=== PATIENT | male | born 1975 | race Caucasian/White ===

== ENCOUNTER 2017-04-24 15:15 | Observation (INO) | payer OTHER ==
[2017-04-24] MEDS ORDERED: Nitroglycerin 0.4 MG Tab.SL SL PRN (15:21)
[2017-04-24] MEDS ORDERED: Aspirin 81 MG Tab.Chew PO ONE (15:21)
[2017-04-24] MEDS ORDERED: Sodium Chloride 0.9% 10 ML Syringe FLUSH PRN (15:21)
[2017-04-24] MEDS ORDERED: Sodium Chloride 0.9% 2.5 ML Syringe FLUSH PRN (15:21)
--- NOTE | 2017-04-24 15:35 | EDM.PDOC ---
[id number]: 04/24/17 15:25 Source of Information: Reports: Patient History Limitations: Reports: No Limitations - History of Present Illness INITIAL COMMENTS - FREE TEXT/NARRATIVE: History of present illness: []Patient got up to go to work 1 hour ago and developed left-sided chest pain that sharp and nonradiating with shortness of breath. Not had this chest pain before he denies any nausea, vomiting, fevers, cough or recent illnesses. He had no sweating, syncope, dizziness or lightheadedness. Pain at its worse was 8/ 10. On arrival patient still has pain after one dose of nitroglycerin his pressure dropped but his pain was alleviated to 5 out of 10. He developed a severe headache was Review of systems: As per history of present illness and below otherwise all systems reviewed and negative. Past medical history: As per history of present illness and as reviewed below otherwise noncontributory. Surgical history: As per history of present illness and as reviewed below otherwise noncontributory. Social history: No reported history of drug or alcohol abuse. Family history: As per history of present illness and as reviewed below otherwise noncontributory. Physical exam: General: Well developed, well nourished in NAD HEENT: Atraumatic, normocephalic, pupils reactive, negative for conjunctival pallor or scleral icterus, mucous membranes moist, throat clear, neck supple, nontender, trachea midline. Lungs: Clear to auscultation, breath sounds equal bilaterally, chest nontender. Heart: S1S2, regular, negative for clicks, rubs, or JVD. Abdomen: Soft, nondistended, nontender. Negative for masses or hepatosplenomegaly. Negative for costovertebral tenderness. Pelvis: Stable nontender. Genitourinary: Deferred. Rectal: Deferred. Extremities: Atraumatic, negative for cords or calf pain. Neurovascular unremarkable. Neuro: Awake, alert, oriented. Cranial nerves II through XII unremarkable. Cerebellum unremarkable. Motor and sensory unremarkable throughout. Exam nonfocal. Diagnostics: []Cardiac workup which is initially negative including a d-dimer ruling out PE EKG shows no acute ischemia Therapeutics: []Patient was given nitroglycerin which dropped his pressure significantly. IV fluids was given and morphine for pain improved. Given aspirin Impression: []ACS Plan: []Admit for observation rule out RI further treatment Definitive disposition and diagnosis as appropriate pending reevaluation and review of above. Left Chest Pain Score (Numeric/FACES): 7 - Related Data Allergies Allergy/AdvReac Type Severity Reaction Status Date / Time No Known Allergies Allergy Verified 04/24/17 15:20 Home Meds: Home Meds metFORMIN [Glucophage XR] 500 mg PO QIDACANDBED 04/24/17 [History] Past Medical History Endocrine/Metabolic History: Reports: Diabetes, Type II - Infectious Disease History Infectious Disease History: Reports: Chicken Pox Social & Family History - Family History Cardiac: Reports: Heart Failure - Tobacco Use Smoking Status *Q: Current Every Day Smoker Years of Tobacco use: 22 Packs/Tins Daily: 0.5 - Caffeine Use Caffeine Use: Reports: Energy Drinks - Recreational Drug Use Recreational Drug Use: No ED ROS GENERAL - Review of Systems Review Of Systems: See Below (See history of present illness) ED EXAM, GENERAL - Physical Exam Exam: See Below (See history of present illness) Course - Vital Signs Last Recorded V/S: Last Vital Signs Temp 36.5 C 04/24/17 17:47 Pulse 82 04/24/17 17:47 Resp 20 04/24/17 17:47 BP 117/80 04/24/17 17:47 Pulse Ox 97 04/24/17 17:47 - Orders/Labs/Meds Orders: Active Orders 24 hr Category Date Time Status Cardiac Monitoring [RC] . DIRECTED Care 04/24/17 15:20 Active Sodium Chloride 0.9% [Saline Flush] Med 04/24/17 15:21 Active 10 ml FLUSH ASDIRECTED PRN Sodium Chloride 0.9% [Saline Flush] Med 04/24/17 15:21 Active 2.5 ml FLUSH ASDIRECTED PRN Saline Lock Insert [OM.PC] Stat Oth 04/24/17 15:20 Ordered Medication Orders Sodium Chloride (Saline Flush) 10 ml FLUSH ASDIRECTED PRN PRN Reason: Keep Vein Open Last Admin: 04/24/17 15:41 Dose: 10 ml Sodium Chloride (Saline Flush) 2.5 ml FLUSH ASDIRECTED PRN PRN Reason: Keep Vein Open Last Admin: 04/24/17 15:41 Dose: 2.5 ml Labs: Laboratory Tests 04/24/17 04/24/17 04/24/17 Range/Units 15:30 15:30 15:30 WBC 8.48 (4.0-11.0) K/uL RBC 6.18 H (4.50-5.90) M/uL Hgb 17.6 H (13.0-17.0) g/dL Hct 51.2 H (38.0-50.0) % MCV 82.8 (80.0-98.0) fL MCH 28.5 (27.0-32.0) pg MCHC 34.4 (31.0-37.0) g/dL RDW Std Deviation 42.3 (28.0-62.0) fl RDW Coeff of Aura 14 (11.0-15.0) % Plt Count 239 (150-400) K/uL MPV 11.80 (7.40-12.00) fL Neut % (Auto) 49.5 (48.0-80.0) % Lymph % (Auto) 39.4 (16.0-40.0) % Villalba % (Auto) 8.0 (0.0-15.0) % Eos % (Auto) 2.9 (0.0-7.0) % Baso % (Auto) 0.2 (0.0-1.5) % Neut # (Auto) 4.2 (1.4-5.7) K/uL Lymph # (Auto) 3.3 H (0.6-2.4) K/uL [place] # (Auto) 0.7 (0.0-0.8) K/uL Eos # (Auto) 0.3 (0.0-0.7) K/uL Baso # (Auto) 0.0 (0.0-0.1) K/uL D-Dimer, Quantitative (0.0-0.52) mg/LFEU Sodium 138 (136-146) mmol/L Potassium 4.2 (3.5-5.1) mmol/L Chloride 103 (98-110) mmol/L Carbon Dioxide 26 (21-31) mmol/L BUN 8 (6.0-23.0) mg/dL Creatinine 0.8 (0.6-1.5) mg/dL Est Cr Clr Drug Dosing 132.03 mL/min Estimated GFR (MDRD) > 60.0 ml/min Glucose 273 H (60-110) mg/dL Calcium 9.6 (8.8-10.8) mg/dL Total Bilirubin 0.6 (0.1-1.5) mg/dL AST 38 (5-40) IU/L ALT 72 H (8-54) IU/L Alkaline Phosphatase 111 (40-150) Troponin I < 0.10 (0.0-0.29) NG/ML Total Protein 7.6 (6.0-8.0) g/dL Albumin 3.9 (3.5-5.0) g/dL Globulin 3.7 H (2.0-3.5) g/dL Albumin/Globulin Ratio 1.1 L (1.3-2.8) 04/24/17 Range/Units 15:30 WBC (4.0-11.0) K/uL RBC (4.50-5.90) M/uL Hgb (13.0-17.0) g/dL Hct (38.0-50.0) % MCV (80.0-98.0) fL MCH (27.0-32.0) pg MCHC (31.0-37.0) g/dL RDW Std Deviation (28.0-62.0) fl RDW Coeff of Aura (11.0-15.0) % Plt Count (150-400) K/uL MPV (7.40-12.00) fL Neut % (Auto) (48.0-80.0) % Lymph % (Auto) (16.0-40.0) % Villalba % (Auto) (0.0-15.0) % Eos % (Auto) (0.0-7.0) % Baso % (Auto) (0.0-1.5) % Neut # (Auto) (1.4-5.7) K/uL Lymph # (Auto) (0.6-2.4) K/uL [place]ba # (Auto) (0.0-0.8) K/uL Eos # (Auto) (0.0-0.7) K/uL Baso # (Auto) (0.0-0.1) K/uL D-Dimer, Quantitative 0.51 (0.0-0.52) mg/LFEU Sodium (136-146) mmol/L Potassium (3.5-5.1) mmol/L Chloride (98-110) mmol/L Carbon Dioxide (21-31) mmol/L BUN (6.0-23.0) mg/dL Creatinine (0.6-1.5) mg/dL Est Cr Clr Drug Dosing mL/min Estimated GFR (MDRD) ml/min Glucose (60-110) mg/dL Calcium (8.8-10.8) mg/dL Total Bilirubin (0.1-1.5) mg/dL AST (5-40) IU/L ALT (8-54) IU/L Alkaline Phosphatase (40-150) Troponin I (0.0-0.29) NG/ML Total Protein (6.0-8.0) g/dL Albumin (3.5-5.0) g/dL Globulin (2.0-3.5) g/dL Albumin/Globulin Ratio (1.3-2.8) Meds: Medications Generic Name Dose Route Start Last Admin Trade Name Freq PRN Reason Stop Dose Admin Sodium Chloride 10 ml 04/24/17 15:21 04/24/17 15:41 Saline Flush FLUSH 10 ml ASDIRECTED PRN Administration Keep Vein Open Sodium Chloride 2.5 ml 04/24/17 15:21 04/24/17 15:41 Saline Flush FLUSH 2.5 ml ASDIRECTED PRN Administration Keep Vein Open Discontinued Medications Generic Name Dose Route Start Last Admin Trade Name Freq PRN Reason Stop Dose Admin Aspirin 324 mg 04/24/17 15:21 04/24/17 15:38 Aspirin PO 04/24/17 15:22 324 mg ONETIME ONE Administration Sodium Chloride 1,000 mls @ 999 mls/hr 04/24/17 15:59 04/24/17 16:05 Normal Saline IV 04/24/17 16:59 999 mls/hr .Bolus ONE Administration Morphine Sulfate 2 mg 04/24/17 15:55 04/24/17 16:04 Morphine IVPUSH 04/24/17 15:56 2 mg ONETIME ONE Administration Morphine Sulfate 2 mg 04/24/17 16:48 04/24/17 17:23 Morphine IVPUSH 04/24/17 16:49 2 mg ONETIME ONE Administration Nitroglycerin 0.4 mg 04/24/17 15:21 04/24/17 15:40 Nitrostat SL 04/24/17 15:32 0.4 mg Q5M PRN Administration Chest Pain Ondansetron HCl 4 mg 04/24/17 15:56 04/24/17 16:04 Zofran IVPUSH 04/24/17 15:57 4 mg ONETIME ONE Administration Departure - Departure Time of Disposition: 17:58 Disposition: Refer to Observation Condition: Good Clinical Impression: Chest pain - My Orders Last 24 Hours: My Active Orders 04/24/17 15:20 Cardiac Monitoring [RC] . DIRECTED Saline Lock Insert [OM.PC] Stat 04/24/17 15:21 Sodium Chloride 0.9% [Saline Flush] 10 ml FLUSH ASDIRECTED PRN Sodium Chloride 0.9% [Saline Flush] 2.5 ml FLUSH ASDIRECTED PRN - Assessment/Plan Last 24 Hours: My Active Orders 04/24/17 15:20 Cardiac Monitoring [RC] . DIRECTED Saline Lock Insert [OM.PC] Stat 04/24/17 15:21 Sodium Chloride 0.9% [Saline Flush] 10 ml FLUSH ASDIRECTED PRN Sodium Chloride 0.9% [Saline Flush] 2.5 ml FLUSH ASDIRECTED PRN
[2017-04-24] MEDS ORDERED: Morphine 2 MG/ML Syringe IVPUSH ONE ×2 (15:55→16:48)
[2017-04-24] MEDS ORDERED: Ondansetron 4 MG/2 ML SDV IVPUSH ONE (15:56)
[2017-04-24] MEDS ORDERED: Sodium Chloride 0.9% 1,000 ML IV ONE (15:59)
[2017-04-24 16:30] LABS: CHLORIDE,CL 103 mmol/L (98-110); SODIUM,NA 138 mmol/L (136-146)
--- NOTE | 2017-04-24 16:32 | CR ---
Single view chest Cardiac monitoring leads are in place. There is no evidence of segmental or lobar consolidation. Adrian g body habitus the lung larson are clear. Impression: No acute cardia pulmonary disease identified allowing for patient's body habitus
[2017-04-24] MEDS ORDERED: oxyCODONE 5 MG Tab PO PRN (18:06)
[2017-04-24] MEDS ORDERED: Ondansetron 4 MG Tab.DIS PO PRN (18:06)
[2017-04-24] MEDS ORDERED: Docusate Sodium 100 MG Cap PO PRN (18:06)
[2017-04-24] MEDS ORDERED: Morphine 2 MG/ML Syringe IVPUSH PRN (18:06)
[2017-04-24] MEDS ORDERED: Acetaminophen 325 MG Tab PO PRN (18:06)
[2017-04-24] MEDS ORDERED: Temazepam 15 MG Cap PO PRN (18:06)
--- NOTE | 2017-04-24 18:18 | PCM.HP ---
H&P History of Present Illness - General Date of Service: 04/24/17 Admit Problem/Dx: Admission Diagnosis/Problem Admission Diagnosis/Problem Chest pain, anginal equivalent, complicated uncontrolled diabetes Source of Information: Patient History Limitations: Reports: No Limitations - History of Present Illness Initial Comments - Free Text/Narative: The patient is a 41-year-old gentleman who is presented to the emergency department primarily out of concern for acute onset left sided sharp, stabbing chest pain which started suddenly while he was at work. The patient did not have any radiation of the pain. He reports that he had some shortness of breath associated. The patient had denied any diaphoresis. No dizziness or lightheadedness. The patient says that he has never had anything like this happen to him in the past. The patient also has a family history of coronary artery disease. The patient in the emergency department had relief with the use of nitroglycerin and morphine. The patient normally works in [place] 2 weeks out of the month and then returns home to [place]. The patient has a primary care physician in [place]. He also admits to previously poorly controlled diabetes mellitus and has a hemoglobin A1c greater than 11%. Onset of Symptoms: Reports: Sudden Duration of Symptoms: Reports: Hour(s):, Improving Location: Reports: Chest Quality: Reports: Sharp, Stabbing Severity: Severe Improves with: Reports: Medication Worsens with: Reports: None Associated Symptoms: Reports: Shortness of Breath Left Chest Pain Score (Numeric/FACES): 7 - Related Data Allergies/Adverse Reactions: Allergies Allergy/AdvReac Type Severity Reaction Status Date / Time No Known Allergies Allergy Verified 04/24/17 15:20 Home Medications: Home Meds metFORMIN [Glucophage XR] 500 mg PO QIDACANDBED 04/24/17 [History] Past Medical History HEENT History: Reports: None Cardiovascular History: Reports: None Respiratory History: Reports: None Gastrointestinal History: Reports: None Genitourinary History: Reports: None Musculoskeletal History: Reports: None Neurological History: Reports: None Psychiatric History: Reports: None Endocrine/Metabolic History: Reports: Diabetes, Type II (Poorly controlled) Hematologic History: Reports: None Oncologic (Cancer) History: Reports: None - Infectious Disease History Infectious Disease History: Reports: Chicken Pox Social & Family History - Family History HEENT: Reports: Other (See Below) Other HEENT Family History: diabetic retinopathy Cardiac: Reports: Heart Failure Respiratory: Reports: Other (See Below) Other Respiratory Family Hisory: Lung CA Endocrine/Metabolic: Reports: Diabetes, type II Oncologic: Reports: Leukemia, Liver, Lung - Tobacco Use Smoking Status *Q: Current Every Day Smoker Years of Tobacco use: 22 Packs/Tins Daily: 0.5 - Caffeine Use Caffeine Use: Reports: Energy Drinks - Recreational Drug Use Recreational Drug Use: No H&P Review of Systems - Review of Systems: Review Of Systems: See Below General: Reports: Weakness HEENT: Reports: No Symptoms Pulmonary: Reports: Shortness of Breath Cardiovascular: Reports: Chest Pain Gastrointestinal: Reports: No Symptoms Genitourinary: Reports: No Symptoms Musculoskeletal: Reports: No Symptoms Skin: Reports: No Symptoms Psychiatric: Reports: No Symptoms Neurological: Reports: No Symptoms Hematologic/Lymphatic: Reports: No Symptoms Immunologic: Reports: No Symptoms Exam - Exam Exam: See Below - Vital Signs Vital Signs: Last Vital Signs Temp 36.5 C 04/24/17 17:47 Pulse 82 04/24/17 17:47 Resp 20 04/24/17 17:47 BP 117/80 04/24/17 17:47 Pulse Ox 97 04/24/17 17:47 Weight: 154.221 kg - Exam Quality Assessment: Supplemental Oxygen General: Alert, Oriented, Cooperative, Mild Distress HEENT: Conjunctiva Clear, EACs Clear, Mucosa Moist & [place], Nares Patent, Other ( Very poor oral hygiene) Neck: Supple, Trachea Midline, Full Range of Motion. No: Thyromegaly Lungs: Clear to Auscultation, Normal Respiratory Effort Cardiovascular: Regular Rate, Regular Rhythm, Normal S1, Normal S2 GI/Abdominal Exam: Normal Bowel Sounds, Soft, Non-Tender, Other (Obese) Back Exam: Decreased Range of Motion Extremities: Normal Inspection, No Pedal Edema Skin: Warm, Dry, Intact Neurological: Cranial Nerves Intact Neuro Extensive - Mental Status: Alert, Oriented x3 Psychiatric: Alert, Normal Affect, Normal Mood - Patient Data Result Diagrams: 04/24/17 15:30 04/24/17 15:30 *Q Meaningful Use (ADM) - VTE *Q VTE Criteria *Q: - VTE Risk Assess *Q Each Risk Factor Represents 1 Point: Age 41 - 59 years, Obesity (BMI greater than 30) Total Score 1 Point Risk Factors: 2 - Stroke *Q Stroke Criteria *Q: - AMI *Q AMI Criteria *Q: - Problem List (1) Chest pain, atypical SNOMED Code(s): 905244431 ICD Code: R07.89 - OTHER CHEST PAIN Status: Acute Priority: High Current Visit: Yes (2) Morbid obesity SNOMED Code(s): 248541620, 16195716985839 ICD Code: E66.01 - MORBID (SEVERE) OBESITY DUE TO EXCESS CALORIES Status: Chronic Priority: High Current Visit: Yes (3) Diabetes mellitus type 2 in obese SNOMED Code(s): 03208934 ICD Code: E11.69 - TYPE 2 DIABETES MELLITUS WITH OTHER SPECIFIED COMPLICATION ; E66.9 - OBESITY, UNSPECIFIED Status: Chronic Current Visit: Yes Problem Details: Poorly controlled (4) Tobacco abuse SNOMED Code(s): 693677202, 127710562 ICD Code: Z72.0 - TOBACCO USE Status: Chronic Priority: High Current Visit: Yes Problem List Initiated/Reviewed/Updated: Yes Orders Last 24hrs: Active Orders 24 hr Category Date Time Status Patient Status [ADT] Routine ADT 04/24/17 18:06 Ordered Blood Glucose Check, Bedside [RC] WITHMEALSANDBED Care 04/24/17 18:06 Ordered Blood Glucose Check, Bedside [RC] WITHMEALSANDBED Care 04/24/17 18:06 Ordered Diabetes Education [RC] Click To Edit Care 04/24/17 18:08 Ordered EKG Documentation Completion [RC] AM Care 04/25/17 07:00 Ordered Oxygen Therapy [RC] PRN Care 04/24/17 18:06 Ordered VTE/DVT Education [RC] PER UNIT ROUTINE Care 04/24/17 18:06 Ordered Vital Signs [RC] Q4H Care 04/24/17 18:06 Ordered [place] [employer] Diet [DIET] Diet 04/25/17 Breakfast Ordered BASIC METABOLIC PANEL,BMP [CHEM] AM Lab 04/25/17 05:11 Ordered CBC WITH AUTO DIFF [HEME] AM Lab 04/25/17 05:11 Ordered GLYCOSYLATED HEMOGLOBIN,HGBA1C [CHEM] Routine Lab 04/24/17 18:12 Ordered TROPONIN I [CHEM] Timed Lab 04/24/17 18:06 Ordered Acetaminophen [Tylenol] Med 04/24/17 18:06 Ordered 650 mg PO Q4H PRN Docusate Sodium [Colace] Med 04/24/17 18:06 Ordered 100 mg PO BID PRN Enoxaparin [Lovenox] Med 04/24/17 18:15 Ordered 40 mg SUBCUT DAILY Insulin Aspart [NovoLOG] Med 04/24/17 21:00 Ordered See Protocol SUBCUT ACBREAKFASTANDBED Morphine Med 04/24/17 18:06 Ordered 2 mg IVPUSH Q2H PRN Ondansetron [Zofran ODT] Med 04/24/17 18:06 Ordered 4 mg PO Q4H PRN Sodium Chloride 0.9% [Normal Saline] 1,000 ml Med 04/24/17 18:15 Ordered IV ASDIRECTED Temazepam [Restoril] Med 04/24/17 18:06 Ordered 15 mg PO BEDTIME PRN metFORMIN [Glucophage XR] Med 04/24/17 21:00 Ordered 500 mg PO QIDACANDBED oxyCODONE Med 04/24/17 18:06 Ordered 5 mg PO Q4H PRN Glucose Management Sub Q Reflex [OM.PC] Click To Edit Oth 04/24/17 18:06 Ordered Resuscitation Status Routine Resus Stat 04/24/17 18:06 Ordered Medication Orders Acetaminophen (Tylenol) 650 mg PO Q4H PRN PRN Reason: Pain (Mild 1-3)/fever Docusate Sodium (Colace) 100 mg PO BID PRN PRN Reason: Constipation Enoxaparin Sodium (Lovenox) 40 mg SUBCUT DAILY PATI Sodium Chloride (Normal Saline) 1,000 mls @ 70 mls/hr IV ASDIRECTED PATI Insulin Aspart (Novolog) 0 unit SUBCUT ACBREAKFASTANDBED PATI PRN Reason: Protocol Metformin HCl (Glucophage Xr) 500 mg PO QIDACANDBED PATI Morphine Sulfate (Morphine) 2 mg IVPUSH Q2H PRN PRN Reason: Pain (severe 7-10) Stop: 04/25/17 18:08 Ondansetron HCl (Zofran Odt) 4 mg PO Q4H PRN PRN Reason: nausea, able to take PO Oxycodone HCl (Oxycodone) 5 mg PO Q4H PRN PRN Reason: Pain (moderate 4-6) Sodium Chloride (Saline Flush) 10 ml FLUSH ASDIRECTED PRN PRN Reason: Keep Vein Open Last Admin: 04/24/17 15:41 Dose: 10 ml Sodium Chloride (Saline Flush) 2.5 ml FLUSH ASDIRECTED PRN PRN Reason: Keep Vein Open Last Admin: 04/24/17 15:41 Dose: 2.5 ml Temazepam (Restoril) 15 mg PO BEDTIME PRN PRN Reason: Sleep Assessment/Plan Comment:: The patient is a 41-year-old gentleman who will be admitted observation secondary to his atypical chest pain. The patient has a number risk factors include family history, diabetes, smoking and morbid obesity. I've ordered serial troponins as the initial troponin in the emergency department was undetectable. The patient will also be kept on telemetry. I've ordered a ADA diet for the patient and I placed the patient on low-dose sliding scale insulin. I've ordered a hemoglobin A1c. The patient also reportedly has been poorly compliant with both his diet and his diabetes and does not check his blood sugars. The patient will also be afforded a nicotine patch in order to help with his cigarette craving. The patient will also have an EKG in the morning and if this is normal and the patient's serial troponins have been normal he'll be discharged with a recommendation to follow-up with his primary care physician for likely outpatient stress test. If the troponins come back abnormal the patient will be considered for transfer to a tertiary care center. I have discussed this with the patient.
[2017-04-24] MEDS: Enoxaparin 40 MG/0.4 ML Syringe SUBCUT SCH (18:44)
[2017-04-24] MEDS: Sodium Chloride 0.9% 1,000 ML IV SCH (18:45)
[2017-04-24] MEDS ORDERED: Acetaminophen/HYDROcodone 325-5 MG Tab PO PRN (19:06)
[2017-04-24] MEDS: Nicotine 14 MG/24 Hr Patch TRDERM SCH (20:08)
[2017-04-24] MEDS: Insulin Aspart 100 Units/ML 3 ML Pen SUBCUT SCH (21:16)
[2017-04-24] MEDS: metFORMIN 500 MG Tab.ER PO SCH (21:16)
[2017-04-25 07:05] LABS: CHLORIDE,CL 101 mmol/L (98-110); SODIUM,NA 137 mmol/L (136-146)
[2017-04-25] MEDS: metFORMIN 500 MG Tab.ER PO SCH (07:18)
[2017-04-25] MEDS: Insulin Aspart 100 Units/ML 3 ML Pen SUBCUT SCH (07:18)
[2017-04-25 08:18] VITALS: BP 124/83
[2017-04-25] MEDS: Enoxaparin 40 MG/0.4 ML Syringe SUBCUT SCH (08:20)
[2017-04-25] MEDS: Nicotine 14 MG/24 Hr Patch TRDERM SCH (08:23)
[2017-04-25] MEDS: Sodium Chloride 0.9% 1,000 ML IV SCH (08:28)
--- NOTE | 2017-04-25 10:32 | PCM.DCSUM1 ---
[id number] Text/Narrative:: Discharge Summary Date of admission: 04/24/2017 Date of discharge: 04/25/2017 Admitting diagnosis: #1. Atypical chest pain #2. Morbid obesity #3. Diabetes type 2 #4. Tobacco abuse #5. Discharge diagnoses: #1. Atypical chest pain, acute coronary syndrome ruled out patient requires outpatient cardiac stress testing #2. Diabetes type 2 uncontrolled secondary to noncompliance #3. Morbid obesity #4. Tobacco abuse/dependence #5. Consultations: None Procedures: None Hospitalization course: Patient was admitted secondary to acute cardiac syndrome rule out due to multiple risk factors. Patient troponins were negative 3. Patient denies any further chest pain while inpatient. Patient however did have an elevated hemoglobin A1c of greater than 12. Patient states that he does not take any of his home medications for diabetes control. As such informatics educator assess the patient, counseled him on dietary intake, importance of continuing his home medication, it importance of seeing his primary care physician for appropriate follow-up for his diabetes. Patient was deemed stable and has such was ready to be discharged home. A in-depth discussion was had with the patient in regards to his cardiac risk factors patient stated that he was going back home to [place] within the next couple of days. Patient was told that he needs to immediately follow up with his primary care physician in [place] for cardiac stress testing. Disposition on discharge: Home Condition on discharge: Patient is stable tolerating by mouth no longer in chest pain, no nausea vomiting diarrhea or constipation Discharge medications: Continuation of home medication Follow-up instructions: Patient is to follow-up with primary care physician in [place] for cardiac stress test, when patient was back to [place] he will follow up with Dr. Amanda - Discharge Data Discharge Date: 04/25/17 Discharge Disposition: Home, Self-Care 01 Condition: Stable - Patient Instructions Diet: Diabetic Diet Activity: No Strenuous Activities Driving: May Drive Today Showering/Bathing: May Shower Notify Provider of: Fever, Increased Pain, Swelling and Redness, Drainage, Nausea and/or Vomiting - Discharge Plan Home Medications: Home Meds metFORMIN [Glucophage XR] 500 mg PO QIDACANDBED 04/24/17 [History] Patient Handouts: Type 2 Diabetes Mellitus, Adult, Nonspecific Chest Pain - Discharge Summary/Plan Comment DC Time >30 min.: No - Patient Data Vitals - Most Recent: Last Vital Signs Temp 35.9 C 04/25/17 08:00 Pulse 76 04/25/17 08:00 Resp 20 04/25/17 08:00 BP 124/83 04/25/17 08:00 Pulse Ox 93 L 04/25/17 08:00 Weight - Most Recent: 153.087 kg I&O - Last 24 hours: Intake & Output 04/24/17 04/25/17 04/25/17 22:59 06:59 14:59 Intake Total 1750 1000 Output Total 400 Balance 1350 1000 Lab Results - Last 24 hrs: Laboratory Results - last 24 hr 04/24/17 04/24/17 04/24/17 Range/Units 18:24 18:30 18:30 WBC (4.0-11.0) K/uL RBC (4.50-5.90) M/uL Hgb (13.0-17.0) g/dL Hct (38.0-50.0) % MCV (80.0-98.0) fL MCH (27.0-32.0) pg MCHC (31.0-37.0) g/dL RDW Std Deviation (28.0-62.0) fl RDW Coeff of Aura (11.0-15.0) % Plt Count (150-400) K/uL MPV (7.40-12.00) fL Neut % (Auto) (48.0-80.0) % Lymph % (Auto) (16.0-40.0) % [place] % (Auto) (0.0-15.0) % Eos % (Auto) (0.0-7.0) % Baso % (Auto) (0.0-1.5) % Neut # (Auto) (1.4-5.7) K/uL Lymph # (Auto) (0.6-2.4) K/uL [place] # (Auto) (0.0-0.8) K/uL Eos # (Auto) (0.0-0.7) K/uL Baso # (Auto) (0.0-0.1) K/uL Sodium (136-146) mmol/L Potassium (3.5-5.1) mmol/L Chloride (98-110) mmol/L Carbon Dioxide (21-31) mmol/L BUN (6.0-23.0) mg/dL Creatinine (0.6-1.5) mg/dL Est Cr Clr Drug Dosing mL/min Estimated GFR (MDRD) ml/min Glucose (60-110) mg/dL POC Glucose 272 H (60-110) mg/dL Hemoglobin A1c 12.6 H (0.0-6.0) % Calcium (8.8-10.8) mg/dL Troponin I < 0.10 (0.0-0.29) NG/ML 04/24/17 04/25/17 04/25/17 Range/Units 21:05 00:17 06:41 WBC 10.16 (4.0-11.0) K/uL RBC 5.53 (4.50-5.90) M/uL Hgb 15.8 (13.0-17.0) g/dL Hct 47.1 (38.0-50.0) % MCV 85.2 (80.0-98.0) fL MCH 28.6 (27.0-32.0) pg MCHC 33.5 (31.0-37.0) g/dL RDW Std Deviation 43.1 (28.0-62.0) fl RDW Coeff of Aura 14 (11.0-15.0) % Plt Count 209 (150-400) K/uL MPV 11.20 (7.40-12.00) fL Neut % (Auto) 45.0 L (48.0-80.0) % Lymph % (Auto) 45.2 H (16.0-40.0) % [place] % (Auto) 6.0 (0.0-15.0) % Eos % (Auto) 3.6 (0.0-7.0) % Baso % (Auto) 0.2 (0.0-1.5) % Neut # (Auto) 4.6 (1.4-5.7) K/uL Lymph # (Auto) 4.6 H (0.6-2.4) K/uL [place] # (Auto) 0.6 (0.0-0.8) K/uL Eos # (Auto) 0.4 (0.0-0.7) K/uL Baso # (Auto) 0.0 (0.0-0.1) K/uL Sodium (136-146) mmol/L Potassium (3.5-5.1) mmol/L Chloride (98-110) mmol/L Carbon Dioxide (21-31) mmol/L BUN (6.0-23.0) mg/dL Creatinine (0.6-1.5) mg/dL Est Cr Clr Drug Dosing mL/min Estimated GFR (MDRD) ml/min Glucose (60-110) mg/dL POC Glucose 273 H (60-110) mg/dL Hemoglobin A1c (0.0-6.0) % Calcium (8.8-10.8) mg/dL Troponin I < 0.10 (0.0-0.29) NG/ML 04/25/17 04/25/17 Range/Units 06:41 06:41 WBC (4.0-11.0) K/uL RBC (4.50-5.90) M/uL Hgb (13.0-17.0) g/dL Hct (38.0-50.0) % MCV (80.0-98.0) fL MCH (27.0-32.0) pg MCHC (31.0-37.0) g/dL RDW Std Deviation (28.0-62.0) fl RDW Coeff of Aura (11.0-15.0) % Plt Count (150-400) K/uL MPV (7.40-12.00) fL Neut % (Auto) (48.0-80.0) % Lymph % (Auto) (16.0-40.0) % [place] % (Auto) (0.0-15.0) % Eos % (Auto) (0.0-7.0) % Baso % (Auto) (0.0-1.5) % Neut # (Auto) (1.4-5.7) K/uL Lymph # (Auto) (0.6-2.4) K/uL [place] # (Auto) (0.0-0.8) K/uL Eos # (Auto) (0.0-0.7) K/uL Baso # (Auto) (0.0-0.1) K/uL Sodium 137 (136-146) mmol/L Potassium 3.7 (3.5-5.1) mmol/L Chloride 101 (98-110) mmol/L Carbon Dioxide 29 (21-31) mmol/L BUN 9 (6.0-23.0) mg/dL Creatinine 0.7 (0.6-1.5) mg/dL Est Cr Clr Drug Dosing 150.89 mL/min Estimated GFR (MDRD) > 60.0 ml/min Glucose 222 H (60-110) mg/dL POC Glucose (60-110) mg/dL Hemoglobin A1c (0.0-6.0) % Calcium 8.8 (8.8-10.8) mg/dL Troponin I < 0.10 (0.0-0.29) NG/ML Med Orders - Current: Current Medications Acetaminophen (Tylenol) 650 mg PO Q4H PRN PRN Reason: Pain (Mild 1-3)/fever Last Admin: 04/24/17 20:08 Dose: 650 mg Hydrocodone Bitart/Acetaminophen ([place] 325-5 Mg) 1 tab PO Q4H PRN PRN Reason: severe chest pain Docusate Sodium (Colace) 100 mg PO BID PRN PRN Reason: Constipation Enoxaparin Sodium (Lovenox) 40 mg SUBCUT DAILY [facility] Last Admin: 04/25/17 08:20 Dose: 40 mg Sodium Chloride (Normal Saline) 1,000 mls @ 70 mls/hr IV ASDIRECTED [facility] Last Admin: 04/25/17 08:28 Dose: 70 mls/hr Insulin Aspart (Novolog) 0 unit SUBCUT ACBREAKFASTANDBED [facility] PRN Reason: Protocol Last Admin: 04/25/17 07:18 Dose: 4 units Metformin HCl (Glucophage Xr) 500 mg PO QIDACANDBED [facility] Last Admin: 04/25/17 07:18 Dose: 500 mg Nicotine (Habitrol) 14 mg TRDERM DAILY [facility] Last Admin: 04/25/17 08:23 Dose: 14 mg Ondansetron HCl (Zofran Odt) 4 mg PO Q4H PRN PRN Reason: nausea, able to take PO Oxycodone HCl (Oxycodone) 5 mg PO Q4H PRN PRN Reason: Pain (moderate 4-6) Sodium Chloride (Saline Flush) 10 ml FLUSH ASDIRECTED PRN PRN Reason: Keep Vein Open Last Admin: 08/15/17 15:41 Dose: 10 ml Sodium Chloride (Saline Flush) 2.5 ml FLUSH ASDIRECTED PRN PRN Reason: Keep Vein Open Last Admin: 04/24/17 15:41 Dose: 2.5 ml Temazepam (Restoril) 15 mg PO BEDTIME PRN PRN Reason: Sleep Discontinued Medications Aspirin (Aspirin) 324 mg PO ONETIME ONE Stop: 04/24/17 15:22 Last Admin: 04/24/17 15:38 Dose: 324 mg Sodium Chloride (Normal Saline) 1,000 mls @ 999 mls/hr IV .Bolus ONE Stop: 04/24/17 16:59 Last Admin: 04/24/17 16:05 Dose: 999 mls/hr Morphine Sulfate (Morphine) 2 mg IVPUSH ONETIME ONE Stop: 04/24/17 15:56 Last Admin: 04/24/17 16:04 Dose: 2 mg Morphine Sulfate (Morphine) 2 mg IVPUSH ONETIME ONE Stop: 04/24/17 16:49 Last Admin: 04/24/17 17:23 Dose: 2 mg Morphine Sulfate (Morphine) 2 mg IVPUSH Q2H PRN PRN Reason: Pain (severe 7-10) Stop: 04/25/17 18:08 Nitroglycerin (Nitrostat) 0.4 mg SL Q5M PRN PRN Reason: Chest Pain Stop: 04/24/17 15:32 Last Admin: 04/24/17 15:40 Dose: 0.4 mg Ondansetron HCl (Zofran) 4 mg IVPUSH ONETIME ONE Stop: 04/24/17 15:57 Last Admin: 04/24/17 16:04 Dose: 4 mg *Q Meaningful Use (DIS) - VTE *Q VTE Criteria *Q: - Stroke *Q Stroke Criteria *Q: - AMI *Q AMI Criteria *Q: <David Kong - Last Filed: 04/27/17 12:39> Discharge Summary - Discharge Diagnosis/Problem(s) (1) Chest pain, atypical SNOMED Code(s): 135070948 ICD Code: R07.89 - OTHER CHEST PAIN Status: Acute Priority: High (2) Morbid obesity SNOMED Code(s): 267913480, 88742228641707 ICD Code: E66.01 - MORBID (SEVERE) OBESITY DUE TO EXCESS CALORIES Status: Chronic Priority: High (3) Diabetes mellitus type 2 in obese SNOMED Code(s): 27953712 ICD Code: E11.69 - TYPE 2 DIABETES MELLITUS WITH OTHER SPECIFIED COMPLICATION ; E66.9 - OBESITY, UNSPECIFIED Status: Chronic Problem Details: Poorly controlled (4) Tobacco abuse SNOMED Code(s): 642872073, 579612776 ICD Code: Z72.0 - TOBACCO USE Status: Chronic Priority: High - Discharge Summary/Plan Comment Discharge Summary/Plan Comment: I was present with the resident during history and examination. I discussed the case with the resident and agree with the findings and plan as documented in the residents note. - Patient Data Vitals - Most Recent: Last Vital Signs Temp 35.9 C 04/25/17 08:00 Pulse 76 04/25/17 08:00 Resp 20 04/25/17 08:00 BP 124/83 04/25/17 08:00 Pulse Ox 93 L 04/25/17 08:00 Med Orders - Current: Current Medications Discontinued Medications Acetaminophen (Tylenol) 650 mg PO Q4H PRN PRN Reason: Pain (Mild 1-3)/fever Last Admin: 04/24/17 20:08 Dose: 650 mg Hydrocodone Bitart/Acetaminophen ([place] 325-5 Mg) 1 tab PO Q4H PRN PRN Reason: severe chest pain Aspirin (Aspirin) 324 mg PO ONETIME ONE Stop: 04/24/17 15:22 Last Admin: 04/24/17 15:38 Dose: 324 mg Docusate Sodium (Colace) 100 mg PO BID PRN PRN Reason: Constipation Enoxaparin Sodium (Lovenox) 40 mg SUBCUT DAILY [facility] Last Admin: 04/25/17 08:20 Dose: 40 mg Sodium Chloride (Normal Saline) 1,000 mls @ 999 mls/hr IV .Bolus ONE Stop: 04/24/17 16:59 Last Admin: 04/24/17 16:05 Dose: 999 mls/hr Sodium Chloride (Normal Saline) 1,000 mls @ 70 mls/hr IV ASDIRECTED [facility] Last Admin: 04/25/17 08:28 Dose: 70 mls/hr Insulin Aspart (Novolog) 0 unit SUBCUT ACBREAKFASTANDBED [facility] PRN Reason: Protocol Last Admin: 04/25/17 07:18 Dose: 4 units Metformin HCl (Glucophage Xr) 500 mg PO QIDACANDBED [facility] Last Admin: 04/25/17 07:18 Dose: 500 mg Morphine Sulfate (Morphine) 2 mg IVPUSH ONETIME ONE Stop: 04/24/17 15:56 Last Admin: 04/24/17 16:04 Dose: 2 mg Morphine Sulfate (Morphine) 2 mg IVPUSH ONETIME ONE Stop: 04/24/17 16:49 Last Admin: 04/24/17 17:23 Dose: 2 mg Morphine Sulfate (Morphine) 2 mg IVPUSH Q2H PRN PRN Reason: Pain (severe 7-10) Stop: 04/25/17 18:08 Nicotine (Habitrol) 14 mg TRDERM DAILY [facility] Last Admin: 04/25/17 08:23 Dose: 14 mg Nitroglycerin (Nitrostat) 0.4 mg SL Q5M PRN PRN Reason: Chest Pain Stop: 04/24/17 15:32 Last Admin: 04/24/17 15:40 Dose: 0.4 mg Ondansetron HCl (Zofran) 4 mg IVPUSH ONETIME ONE Stop: 04/24/17 15:57 Last Admin: 04/24/17 16:04 Dose: 4 mg Ondansetron HCl (Zofran Odt) 4 mg PO Q4H PRN PRN Reason: nausea, able to take PO Oxycodone HCl (Oxycodone) 5 mg PO Q4H PRN PRN Reason: Pain (moderate 4-6) Sodium Chloride (Saline Flush) 10 ml FLUSH ASDIRECTED PRN PRN Reason: Keep Vein Open Last Admin: 04/24/17 15:41 Dose: 10 ml Sodium Chloride (Saline Flush) 2.5 ml FLUSH ASDIRECTED PRN PRN Reason: Keep Vein Open Last Admin: 04/24/17 15:41 Dose: 2.5 ml Temazepam (Restoril) 15 mg PO BEDTIME PRN PRN Reason: Sleep *Q Meaningful Use (DIS) - VTE *Q VTE Criteria *Q: - Stroke *Q Stroke Criteria *Q: - AMI *Q AMI Criteria *Q:
== END 2017-04-25 10:55 | disposition home or self-care (01) ==
LOC: MW.ED 15:15 → MW.MS 16:55
PROVIDERS: ADMIT Internal Medicine; ATTEND Internal Medicine
DX: R07.89 Other chest pain (principal); E66.01 Morbid (severe) obesity due to excess calories; E11.69 Type 2 diabetes mellitus with other specified complication; F17.210 Nicotine dependence, cigarettes, uncomplicated; Z82.49 Family history of ischemic heart disease and other diseases of the circulatory system; Z79.84 Long term (current) use of oral hypoglycemic drugs
CPT/HCPCS: 36415; 71010; 80048; 80053; 82962; 83036; 84484; 85025; 85379; 93005; 96361; 96372; 96374; 96375; 96376; 99285; A9270; G0378; J1650; J1815; J2270; J2405; J7040; 99284